=== PATIENT | male | born 1960 | race Caucasian/White ===

== ENCOUNTER 2018-04-13 01:47 | Inpatient (IN) | payer OTHER ==
[~2018-04-13] VITALS: Ht 177.8 cm; Wt 70.8 kg
[~2018-04-13 01:47] MED LIST: ASPI325; CEPH500 PO; CIPR500 PO; HYDACE5 PO; NAPR550 PO; Norco 5-325 Ta1 EACH PO; ONDA4ODT MM; RXCEPH500 PO; RXNAPNA550 PO
[2018-04-13 05:09] LABS: Hematocrit 44.2 % (37.0-53.0); Hemoglobin 14.9 g/dL (13.5-17.5); Mean Corpuscular HGB Conc 33.7 g/dL (31.5-36.5); Mean Corpuscular Volume 95 fL (80-100); Mean Platelet Volume 9.2 fL (9.1-12.4); Platelet Count 280 K/mm3 (150-400); RDW Coefficient Variation 12.6 % (11.7-14.2); RDW Standard Deviation 43.5 fL (35.1-46.3); Red Blood Cell Count 4.66 M/mm3 (4.30-5.90)
[2018-04-13 05:35] LABS: Alanine Aminotransfer (ALT/SGP 20 U/L (12-78); Albumin, Blood 3.6 g/dL (3.4-5.0); Albumin/Globulin Ratio 1.1 (0.8-1.8); Alk Phos 76 U/L (50-136); Anion Gap 7 mmol/L (6-16); Aspartate Aminotrans (AST/SGOT 15 U/L (12-37); Bilirubin, Total 0.3 mg/dL (0.1-1.0); Blood Urea Nitrogen 8 mg/dL (8-24); Bun/Creatinine Ratio 8.5 (12.0-20.0); CO2, Blood 27 mmol/L (21-32); Calcium, Blood 8.9 mg/dL (8.5-10.1); Chloride, Blood 105 mmol/L (98-108); Creatinine, Blood 0.95 mg/dL (0.60-1.20); Globulin, Blood 3.4 g/dL (2.2-4.0); Glomerular Filtration Rate >60 (60-); Glucose, Blood 111 mg/dL (70-99); Potassium, Blood 3.9 mmol/L (3.5-5.5); Sodium, Blood 139 mmol/L (136-145)
[2018-04-13] MEDS ORDERED: HYDR1TAB94 PO (20:43)
[2018-04-13] MEDS ORDERED: AMOCLA500 PO (20:43)
[2018-04-13] MEDS ORDERED: DOCU100 PO (20:44)
== END 2018-04-13 21:05 | disposition home or self-care (01) | DRG 909 ==
LOC: ER 01:47 → SURS 03:23
PROVIDERS: Internal Medicine; Student in an Organized Health Care Education/Training Program
PROC: 0Y6T0Z3 Detachment at Right 3rd Toe, Low, Open Approach (ICD-10-PCS; 2018-04-13)
PROC: 0Y6R0Z3 Detachment at Right 2nd Toe, Low, Open Approach (ICD-10-PCS; 2018-04-13)
PROC: 0Y6P0Z3 Detachment at Right 1st Toe, Low, Open Approach (ICD-10-PCS; principal; 2018-04-13 12:30)
DX: S98.121A Partial traumatic amputation of right great toe, initial encounter (principal); F17.210 Nicotine dependence, cigarettes, uncomplicated; I10 Essential (primary) hypertension; Y92.69 Other specified industrial and construction area as the place of occurrence of the external cause; Y99.0 Civilian activity done for income or pay; W31.2XXA Contact with powered woodworking and forming machines, initial encounter; S98.221A Partial traumatic amputation of two or more right lesser toes, initial encounter; F10.20 Alcohol dependence, uncomplicated; R40.2412 Glasgow coma scale score 13-15, at arrival to emergency department
CPT/HCPCS: 36415; 64450; 73630; 80053; 85027; 85730; 90471; 90714; 93005; 93010; 96361; 96365; 96375; 99285-25; J0690; J1100; J1885; J2250; J2370; J2405; J3010; J7030; J7120

== ENCOUNTER 2018-05-11 00:03 | Day surgery (SDC) | payer OTHER, BC ==
[~2018-05-11 00:03] MED LIST changes: +AMOCLA500 PO; +DOCU100 PO; +HYDR1TAB94 PO
== END 2018-05-11 22:45 | disposition home or self-care (01) ==
LOC: WOUND 00:03
DX: T81.31XA Disruption of external operation (surgical) wound, not elsewhere classified, initial encounter (principal); S98.111A Complete traumatic amputation of right great toe, initial encounter; S98.211A Complete traumatic amputation of two or more right lesser toes, initial encounter; S97.81XA Crushing injury of right foot, initial encounter; F17.210 Nicotine dependence, cigarettes, uncomplicated
CPT/HCPCS: G0463

== ENCOUNTER 2018-05-15 08:25 | Day surgery (SDC) | payer OTHER, BC | END 2018-05-15 22:50 | disposition home or self-care (01) | LOC: WOUND 08:25 | DX: T87.81 Dehiscence of amputation stump (principal); Z89.411 Acquired absence of right great toe; Z89.421 Acquired absence of other right toe(s) ==

== ENCOUNTER 2018-05-18 00:17 | Day surgery (SDC) | payer OTHER, BC | END 2018-05-18 22:39 | disposition home or self-care (01) | LOC: WOUND 00:17 | DX: T81.31XA Disruption of external operation (surgical) wound, not elsewhere classified, initial encounter (principal); S98.111D Complete traumatic amputation of right great toe, subsequent encounter; S98.211D Complete traumatic amputation of two or more right lesser toes, subsequent encounter; S97.81XD Crushing injury of right foot, subsequent encounter; M79.671 Pain in right foot | CPT/HCPCS: G0463 ==

== ENCOUNTER 2018-06-07 07:53 | Day surgery (SDC) | payer OTHER, BC | END 2018-06-07 22:50 | disposition home or self-care (01) | LOC: WOUND 07:53 | DX: T81.31XA Disruption of external operation (surgical) wound, not elsewhere classified, initial encounter (principal); S91.301A Unspecified open wound, right foot, initial encounter; Z89.411 Acquired absence of right great toe; Z89.421 Acquired absence of other right toe(s); Z72.0 Tobacco use ==

== ENCOUNTER 2018-06-09 00:46 | Day surgery (SDC) | payer OTHER, BC | END 2018-06-09 22:43 | disposition home or self-care (01) | LOC: WOUND 00:46 | DX: T81.31XA Disruption of external operation (surgical) wound, not elsewhere classified, initial encounter (principal); S98.111A Complete traumatic amputation of right great toe, initial encounter; S98.211A Complete traumatic amputation of two or more right lesser toes, initial encounter; Z72.0 Tobacco use ==

== ENCOUNTER 2018-06-14 00:08 | Day surgery (SDC) | payer OTHER, BC | END 2018-06-14 22:51 | disposition home or self-care (01) | LOC: WOUND 00:08 | PROC: 2W1SX6Z Compression of Right Foot using Pressure Dressing (ICD-10-PCS; principal; 2018-06-14) | DX: T81.31XD Disruption of external operation (surgical) wound, not elsewhere classified, subsequent encounter (principal); S98.111D Complete traumatic amputation of right great toe, subsequent encounter; S97.81XD Crushing injury of right foot, subsequent encounter; M79.671 Pain in right foot ==

== ENCOUNTER 2018-06-16 01:08 | Day surgery (SDC) | payer OTHER, BC | END 2018-06-16 23:02 | disposition home or self-care (01) | LOC: WOUND 01:08 | PROC: 2W1SX6Z Compression of Right Foot using Pressure Dressing (ICD-10-PCS; principal; 2018-06-16) | DX: T81.31XD Disruption of external operation (surgical) wound, not elsewhere classified, subsequent encounter (principal); S98.111D Complete traumatic amputation of right great toe, subsequent encounter; S98.211D Complete traumatic amputation of two or more right lesser toes, subsequent encounter; S97.81XA Crushing injury of right foot, initial encounter; M79.671 Pain in right foot; Z72.0 Tobacco use ==

== ENCOUNTER 2022-04-13 07:19 | Day surgery (SDC) | payer BC ==
[~2022-04-13] VITALS: Ht 180.3 cm; Wt 65.4 kg
--- NOTE | 2022-04-13 08:24 | NUR ---
Ambulatory in Day Surgery History, Chart, Medications and Allergies reviewed before start of procedure. Pre-Op teaching done. Pt verbalizes understanding. Patient States Post-Procedure ride home has been arranged with [facility].
--- NOTE | 2022-04-13 08:59 | NUR ---
04/13/22 0859 aKren Alex HISTORY, CHART, MEDICATIONS AND ALLERGIES REVIEWED BEFORE START OF PROCEDURE. PATIENT CONFIRMS NPO STATUS AND AGREES WITH SCHEDULED PROCEDURE. 3-LEAD EKG REVIEWED WITH PHYSICIAN PRIOR TO START OF PROCEDURE. MONITOR INTACT WITH CONTINUOUS PULSE OXIMETRY,CAPNOGRAPHY, 3-LEAD EKG, INTERMITTENT BP. SUPPLEMENTAL O2 TO BE TITRATED THROUGHOUT PROCEDURE TO MAINTAIN O2 SATURATION ABOVE 90%. PATIENT DETERMINED TO BE ASA APPROPRIATE FOR PROPOFOL SEDATION PRIOR TO START OF PROCEDURE BY DR. SMALLS.
--- NOTE | 2022-04-13 10:10 | NUR ---
Patient up to Ambulate independently. Gait steady. Discharge instructions reviewed with patient. Patient verbalizes understanding. Copy given to patient to take home. Patient States Post-Procedure ride home has been arranged. Discharged via wheelchair to private car for ride home.
== END 2022-04-13 23:59 | disposition home or self-care (01) ==
LOC: ORSCMMR 07:19 → ORD 09:15 → ORSCMMR 09:15
PROVIDERS: Surgery
PROC: 3E0H8KZ Introduction of Other Diagnostic Substance into Lower GI, Via Natural or Artificial Opening Endoscopic (ICD-10-PCS; principal; 2022-04-13 09:15)
PROC: 0DBN8ZX Excision of Sigmoid Colon, Via Natural or Artificial Opening Endoscopic, Diagnostic (ICD-10-PCS; principal; 2022-04-13 09:15)
DX: R19.5 Other fecal abnormalities (principal); D12.5 Benign neoplasm of sigmoid colon; I10 Essential (primary) hypertension
CPT/HCPCS: 88305; J2704; J7120

== ENCOUNTER 2023-05-24 08:37 | Day surgery (SDC) | payer BC ==
[~2023-05-24] VITALS: Ht 180.3 cm; Wt 98.3 kg
[2023-05-24 10:54] VITALS: BP 93/73
== END 2023-05-24 10:53 | disposition home or self-care (01) ==
LOC: ORSCSDS 08:37
PROVIDERS: Surgery
PROC: 0DJD8ZZ Inspection of Lower Intestinal Tract, Via Natural or Artificial Opening Endoscopic (ICD-10-PCS; principal; 2023-05-24 10:00)
DX: K62.5 Hemorrhage of anus and rectum (principal); R19.5 Other fecal abnormalities; Z86.010 Personal history of colon polyps; K64.8 Other hemorrhoids; E78.5 Hyperlipidemia, unspecified; I10 Essential (primary) hypertension; J44.9 Chronic obstructive pulmonary disease, unspecified; F17.210 Nicotine dependence, cigarettes, uncomplicated
CPT/HCPCS: J2704; J7120